=== PATIENT | female | born 1970 | race Caucasian/White ===

== ENCOUNTER 2022-08-01 13:31 | Outpatient (CLI) | payer OTHER, SELFPAY ==
[2022-08-01 09:37] LABS: Cholesterol* 257 mg/dL (90-199); Glucose* 96 mg/dL (60-115); Triglycerides* 241 mg/dL (40-149)
[2022-08-01 09:38] LABS: HDL Cholesterol* 67 mg/dL (>=50); LDL Cholesterol Calculated 142 mg/dL (<100)
== END 2022-08-01 13:32 | disposition home or self-care (01) ==
PROVIDERS: Visit Provider Obstetrics & Gynecology
DX: Z01.419 Encounter for gynecological examination (general) (routine) without abnormal findings (principal); Z13.1 Encounter for screening for diabetes mellitus; Z13.6 Encounter for screening for cardiovascular disorders
CPT/HCPCS: 80061; 82947

== ENCOUNTER 2022-08-11 15:07 | Outpatient (CLI) | payer OTHER, SELFPAY ==
--- NOTE | 2022-08-11 15:20 | CRLHL7_ITS ---
For Patients: As a result of the Century Cures Act, medical imaging exams and procedure reports are released immediately into your electronic medical record. You may view this report before your referring provider. If you have questions, please contact your health care provider. BILATERAL SCREENING MAMMOGRAM WITH COMPUTER-AIDED DETECTION AND TOMOSYNTHESIS TECHNIQUE: CC and MLO views were obtained. These mammographic images have been obtained using full-field digital technique. These mammographic images were interpreted with the benefit of computer-aided detection. Breast Tomosynthesis was used in this interpretation. COMPARISON FILM: 02/25/21. FINDINGS: There are scattered areas of fibroglandular density IMPRESSION: There is no radiographic evidence for malignancy. ASSESSMENT: BI-RADS Category 1: Negative RECOMMENDATION: Routine screening mammogram in 1 year. A lay language report of this examination will be provided to the patient. Kervin Albarado M.D. Diagnostic Radiologist [email or web address] ZAC/Dictated by: Kervin Albarado MD @ 08/14/2022 8:43:00 AM (Electronically Signed)
== END 2022-08-11 15:08 | disposition home or self-care (01) ==
PROVIDERS: Visit Provider Physician Assistant
DX: Z12.31 Encounter for screening mammogram for malignant neoplasm of breast (principal)
CPT/HCPCS: 77063; 77067

== ENCOUNTER 2023-11-28 08:48 | Outpatient (CLI) | payer OTHER, SELFPAY | END 2023-11-28 08:49 | disposition home or self-care (01) | LOC: NFLDREF 08:49 | PROVIDERS: Visit Provider Obstetrics & Gynecology | DX: Z01.419 Encounter for gynecological examination (general) (routine) without abnormal findings (principal); E78.00 Pure hypercholesterolemia, unspecified | CPT/HCPCS: 80061 ==

== ENCOUNTER 2024-03-25 15:30 | Outpatient (CLI) | payer OTHER, SELFPAY ==
--- NOTE | 2024-03-25 15:40 | CRLHL7_ITS ---
For Patients: As a result of the Century Cures Act, medical imaging exams and procedure reports are released immediately into your electronic medical record. You may view this report before your referring provider. If you have questions, please contact your health care provider. BILATERAL SCREENING MAMMOGRAM WITH COMPUTER-AIDED DETECTION AND TOMOSYNTHESIS TECHNIQUE: CC and MLO views were obtained. These mammographic images have been obtained using full-field digital technique. These mammographic images were interpreted with the benefit of computer-aided detection. Breast Tomosynthesis was used in this interpretation. COMPARISON FILM: 08/11/22, 02/25/21. FINDINGS: There are areas of scattered fibroglandular density. IMPRESSION: There is no radiographic evidence for malignancy. ASSESSMENT: BI-RADS Category 1: Negative RECOMMENDATION: Routine screening mammogram in 1 year. A lay language report of this examination will be provided to the patient. Kervin Albarado M.D. Diagnostic Radiologist [email or web address] Transcribed: 2:57 p.mPraneeth maurer/Dictated by: Kervin Albarado MD @ 03/28/2024 1:03:00 PM (Electronically Signed)
== END 2024-03-25 15:31 | disposition home or self-care (01) ==
LOC: MAMMO 15:31
PROVIDERS: Visit Provider Obstetrics & Gynecology
DX: Z12.31 Encounter for screening mammogram for malignant neoplasm of breast (principal)
CPT/HCPCS: 77063; 77067